=== PATIENT | male | born 1960 | race African-American/Black ===

== ENCOUNTER 2021-05-21 17:55 | Emergency (ER) | payer SELFPAY ==
[~2021-05-21] VITALS: Ht 170.2 cm; Wt 75.0 kg
[2021-05-21 19:01] LABS: HEMATOCRIT 40.8 % (39.0-50.0); HEMOGLOBIN 13.5 g/dl (14.0-18.0); MEAN CELL VOLUME 81.8 fL CALC (80.0-100.0); MEAN CORPUSCULAR HGB 27.1 pG CALC (26.0-32.0); MEAN CORPUSCULAR HGB CONC 33.1 g/dL CAL (32.0-36.0); NEUT# 1.38 thou/uL (1.82-7.42); RED BLOOD COUNT 4.99 mill/uL (4.70-6.10); RED CELL DISTRI WIDTH 12.9 % (11.5-15.5)
[2021-05-21 19:11] LABS: ALBUMIN 4.3 g/dL (3.2-5.0); ALKALINE PHOSPHATASE 44 u/l (38-126); ANION GAP 11 (6-22 (CALC)); BILIRUBIN, TOTAL 1.2 mg/dL (0.0-1.4); BUN 8 mg/dL (8-23); BUN/CREATININE RATIO 8 (12-20 (CALC)); CARBON DIOXIDE 26 mmol/l (22-30); CHLORIDE 104 mmol/l (95-108); GFR > 60 ML/MIN (>=60 (CALC)); GFR FOR AFR.AMER. > 60 ML/MIN (>=60 (CALC)); LIPASE 74 u/l (23-300); POTASSIUM 3.8 mmol/l (3.5-5.1); SGOT/AST 23 u/l (19-48); SODIUM 137 mmol/l (137-146); TOTAL PROTEIN 7.8 g/dL (6.3-8.2)
[2021-05-21 20:25] LABS: URINE BILIRUBIN - DIPSTICK NEGATIVE (NEGATIVE); URINE BLOOD DIPSTICK NEGATIVE (NEGATIVE); URINE COLOR YELLOW; URINE GLUCOSE - DIPSTICK NEGATIVE (NEGATIVE); URINE KETONE NEGATIVE (NEGATIVE); URINE LEUK ESTERASE NEGATIVE (NEGATIVE); URINE PROTEIN - DIPSTICK NEGATIVE (NEG-TRACE); URINE SPECIFIC GRAVITY 1.025; URINE UROBILINOGEN - DIPSTICK 0.2 E.U./dL (0.2)
[2021-05-21 20:28] LABS: URINE NITRITE - DIPSTICK NEGATIVE (Negative)
[2021-05-21] MEDS ORDERED: ZPAK PO (21:21)
[2021-05-21 22:54] VITALS: BP 159/84
== END 2021-05-22 07:12 | disposition home or self-care (01) | DRG 177 ==
LOC: ED 17:55
PROVIDERS: Family Medicine
DX: U07.1 COVID-19 (principal); J12.82 Pneumonia due to coronavirus disease 2019
CPT/HCPCS: Q9967

== ENCOUNTER 2024-08-26 13:37 | Emergency (ER) | payer SELFPAY ==
[~2024-08-26] VITALS: Ht 170.2 cm; Wt 93.8 kg
[~2024-08-26 13:37] MED LIST: ZPAK PO
[2024-08-26 15:30] LABS: URINE BILIRUBIN - DIPSTICK Negative (NEGATIVE); URINE BLOOD DIPSTICK Negative (NEGATIVE); URINE GLUCOSE - DIPSTICK Negative (NEGATIVE); URINE KETONE Negative (NEGATIVE); URINE NITRITE - DIPSTICK Negative (Negative); URINE PROTEIN - DIPSTICK Negative (NEG-TRACE); URINE SPECIFIC GRAVITY <=1.005; URINE UROBILINOGEN - DIPSTICK 0.2 E.U./dL (0.2)
[2024-08-26] MEDS ORDERED: ASPIRIN 81 MG/TAB PO ONE (15:30)
[2024-08-26 15:31] LABS: URINE COLOR Straw; URINE LEUK ESTERASE Small (NEGATIVE)
[2024-08-26 15:43] LABS: URINE SQUAMOUS EPITHELIAL CELL RARE EPI/hpf (0-FEW); URINE TRANSITIONAL EPI. CELLS RARE hpf
[2024-08-26] MEDS ORDERED: cloNIDine HCL 0.1 MG/TAB PO ONE (15:45)
[2024-08-26 15:54] LABS: BASO% 0.4 % (0-3); EOS% 2.8 % (0-8); HEMATOCRIT 40.4 % (39.0-50.0); HEMOGLOBIN 13.5 g/dl (14.0-18.0); LYMPH% 39.9 % (15-41); MEAN CELL VOLUME 80.6 fL CALC (80.0-100.0); MEAN CORPUSCULAR HGB 26.9 pG CALC (26.0-32.0); MEAN CORPUSCULAR HGB CONC 33.4 g/dL CAL (32.0-36.0); MONO% 8.1 % (2-13); NEUT# 3.81 thou/uL (1.82-7.42); NEUT% 47.8 % (42-76); RED BLOOD COUNT 5.01 mill/uL (4.70-6.10); RED CELL DISTRI WIDTH 12.4 % (11.5-15.5)
[2024-08-26 16:03] LABS: ALBUMIN 4.4 g/dL (3.2-5.0); ALKALINE PHOSPHATASE 56 u/l (38-126); ANION GAP 12 (6-22 (CALC)); BILIRUBIN, TOTAL 0.8 mg/dL (0.2-1.3); BUN 12 mg/dL (8-23); BUN/CREATININE RATIO 11 (12-20 (CALC)); CARBON DIOXIDE 25 mmol/l (22-30); CHLORIDE 107 mmol/l (95-108); CREATININE 1.1 mg/dL (0.7-1.3); ESTIMATED GFR 75 ML/MIN (>=90 (CALC)); POTASSIUM 4.5 mmol/l (3.5-5.1); SGOT/AST 31 u/l (19-48); SODIUM 140 mmol/l (137-146); TOTAL PROTEIN 7.7 g/dL (6.3-8.2)
[2024-08-26] MEDS ORDERED: SULFAMETHOXAZOLE W/TRIMETHOPRI 1 COMBO TAB PO ONE (18:35)
[2024-08-26] MEDS ORDERED: BACTRIM DS1 TAB PO (18:37)
[2024-08-26 18:41] VITALS: BP 117/71
== END 2024-08-26 18:53 | disposition home or self-care (01) | DRG 690 ==
LOC: ED 13:37
PROVIDERS: Nurse Practitioner
DX: N39.0 Urinary tract infection, site not specified (principal)